=== PATIENT | male | born 1975 | race Caucasian/White ===

== ENCOUNTER 2017-12-10 22:07 | Emergency (ER) | payer OTHER, SELFPAY ==
--- NOTE | 2017-12-10 22:44 | RAD ---
LEFT RIBS AND PA CHEST THREE VIEWS: 12/10/17 HISTORY: Fell off of ladder with left rib pain. There is no signs of pneumothorax. No rib fractures are identified. Heart size and mediastinal struct ures are normal in appearance. Lungs are clear of any infiltrates. IMPRESSION: Unremarkable left ribs and chest. POS: [facility]
[2017-12-10] MEDS ORDERED: Ketorolac Tromethamine 60 MG/2 ML VIAL ONE (22:53)
--- NOTE | 2017-12-10 22:53 | RAD ---
LEFT KNEE FOUR VIEWS: 12/10/17 HISTORY: Fell off a ladder. There is no signs of fracture, dislocation or joint effusion. IMPRESSION: No evidence of fracture. POS: [facility]
== END 2017-12-10 23:19 | disposition home or self-care (01) ==
LOC: NAV ERS 22:07
DX: S23.41XA Sprain of ribs, initial encounter (principal); F17.210 Nicotine dependence, cigarettes, uncomplicated; W17.89XA Other fall from one level to another, initial encounter
CPT/HCPCS: 96372; J1885